=== PATIENT | male | born 1990 | race African-American/Black ===

== ENCOUNTER 2017-05-11 14:07 | Emergency (ER) | payer OTHER, MEDICAID ==
[~2017-05-11] VITALS: Ht 172.7 cm; Wt 61.0 kg
[2017-05-11 17:03] VITALS: BP 122/62
== END 2017-05-11 17:03 | disposition home or self-care (01) ==
LOC: ER 14:07
DX: T14.8 Other injury of unspecified body region (principal); W57.XXXA Bitten or stung by nonvenomous insect and other nonvenomous arthropods, initial encounter; Y93.89 Activity, other specified; Y92.89 Other specified places as the place of occurrence of the external cause; F17.210 Nicotine dependence, cigarettes, uncomplicated
CPT/HCPCS: 99283

== ENCOUNTER 2019-05-17 10:23 | Emergency (ER) | payer MEDICAID, OTHER ==
[~2019-05-17] VITALS: Ht 172.7 cm; Wt 66.0 kg
[2019-05-17 10:35] VITALS: BP 123/59
[2019-05-17] MEDS ORDERED: AZITHROMYCIN 500 MG TABLET PO ONE (12:00)
[2019-05-17] MEDS ORDERED: CEFTRIAXONE SODIUM 250 MG/VIAL IM ONE (12:00)
[2019-05-20 04:08] LABS: CHLAMYDIA TRACHOMATIS NAA Negative (Negative); NEISSERIA GONORRHOEAE NAA Negative (Negative)
== END 2019-05-17 12:39 | disposition home or self-care (01) ==
LOC: ER 11:07
DX: L02.811 Cutaneous abscess of head [any part, except face] (principal); N48.1 Balanitis; Z11.3 Encounter for screening for infections with a predominantly sexual mode of transmission
CPT/HCPCS: 87491; 87591; 96372; 99283; J0696

== ENCOUNTER 2020-02-25 20:07 | Emergency (ER) | payer MEDICAID ==
[~2020-02-25] VITALS: Ht 172.7 cm; Wt 65.0 kg
[2020-02-25 20:18] VITALS: BP 126/72
[2020-02-25] MEDS ORDERED: TETANUS, DIPHTHERIA, PERTUSSIS VAC/PF 0.5ML (>7YR OLD) IM ONE (21:30)
[2020-02-25] MEDS ORDERED: BACITRACIN ZINC OINT UDPKT TOP ONE (21:30)
[2020-02-25] MEDS ORDERED: LIDOCAINE 1%/EPI 1:100,000 10 ML VIAL IJ ONE (21:30)
[2020-02-25] MEDS ORDERED: ACETAMINOPHEN 500MG TABLET PO ONE (21:30)
[2020-02-25] MEDS ORDERED: LIDOCAINE HCL/EPINEPHRINE 1%-EPI 1:100,000 20 ML VIAL INFIL NR (21:45)
== END 2020-02-25 23:39 | disposition home or self-care (01) ==
LOC: ER 20:07
DX: S61.210A Laceration without foreign body of right index finger without damage to nail, initial encounter (principal); S61.011A Laceration without foreign body of right thumb without damage to nail, initial encounter; X58.XXXA Exposure to other specified factors, initial encounter; Y93.89 Activity, other specified; Y92.89 Other specified places as the place of occurrence of the external cause; Y99.8 Other external cause status
CPT/HCPCS: 90715; 99282; J3490

== ENCOUNTER 2020-08-10 16:18 | Emergency (ER) | payer MEDICAID ==
[~2020-08-10] VITALS: Ht 175.3 cm; Wt 71.0 kg
[2020-08-10 16:24] VITALS: BP 134/73
[2020-08-10 19:03] LABS: CLARITY URINE CLEAR (CLEAR); COLOR URINE YELLOW (YELLOW); KETONES URINE NEGATIVE (NEGATIVE); LEUKOCYTE ESTERASE URINE TRACE (NEGATIVE); NITRITE URINE NEGATIVE (NEGATIVE); OCCULT BLOOD URINE NEGATIVE (NEGATIVE); PH URINE 6.5 (4.5-8.0); PROTEIN URINE NEGATIVE (NEGATIVE); SPECIFIC GRAVITY URINE 1.024 (1.005-1.030); UROBILINOGEN URINE 0.2 E.U./dL (0.2-1.0)
[2020-08-14 04:07] LABS: NEISSERIA GONORRHOEAE NAA Negative (Negative)
== END 2020-08-10 19:33 | disposition home or self-care (01) ==
LOC: ER 16:21
DX: A64 Unspecified sexually transmitted disease (principal)
CPT/HCPCS: 81003; 87491; 87591; 99283

== ENCOUNTER 2021-07-20 13:51 | Emergency (ER) | payer MEDICAID ==
[~2021-07-20] VITALS: Ht 172.7 cm; Wt 69.0 kg
[2021-07-20] MEDS ORDERED: IBUPROFEN 600MG TABLET PO STA (17:07)
[2021-07-20] MEDS ORDERED: CEPH500T PO (17:33)
[2021-07-20] MEDS ORDERED: IBUP-2029 PO (17:33)
[2021-07-20] MEDS ORDERED: SULF1TAB48 PO (17:33)
[2021-07-20] MEDS ORDERED: NIZOS TP (17:33)
[2021-07-20 17:54] VITALS: BP 112/56
== END 2021-07-20 17:56 | disposition home or self-care (01) ==
LOC: ER 14:14
DX: L03.811 Cellulitis of head [any part, except face] (principal); Z79.899 Other long term (current) drug therapy
CPT/HCPCS: 99283

== ENCOUNTER 2024-09-03 23:46 | Emergency (ER) | payer MEDICAID ==
[~2024-09-03] VITALS: Ht 175.3 cm; Wt 76.0 kg
[~2024-09-03 23:46] MED LIST: CEPH500T PO; IBUP-2029 PO; NIZOS TP; SULF1TAB48 PO
[2024-09-03 23:50] VITALS: BP 132/39; PULSE 87; RESP 18; TEMP 98.4; O2SAT 98
[2024-09-04] MEDS ORDERED: SODIUM CHLORIDE 0.9% 1,000 ML IV ONE (00:30)
[2024-09-04 01:33] LABS: BASOPHILS % 0.6 % (0.0-2.0); DIFFERENTIAL COMMENT 0; EOSINOPHILS % 1.2 % (0.0-5.0); HEMATOCRIT. 39.9 % (42.0-52.0); HEMOGLOBIN. 13.4 g/dL (14.0-18.0); LYMPHOCYTES % 19.7 % (20.0-50.0); MEAN CORPUSCULAR HEMOGLOBIN 33.6 pg (28.0-32.0); MEAN CORPUSCULAR HGB CONC 33.5 g/dL (31.0-37.0); MEAN CORPUSCULAR VOLUME 100.1 fL (80.0-94.0); MEAN PLATELET VOLUME 8.9 fl (7.4-10.4); MONOCYTES % 11.5 % (2.0-8.0); PLATELET 204 x1000/uL (130-400); RED BLOOD CELL COUNT 3.98 mill/uL (4.7-6.1); RED CELL DISTRIBUTION WIDTH 12.1 % (11.6-14.6); WHITE BLOOD COUNT 7.4 x1000/uL (4.5-11.0)
[2024-09-04 01:46] LABS: CHLORIDE 106 mEq/L (98-107); POTASSIUM 3.7 mEq/L (3.5-5.1); SODIUM 141 mEq/L (136-145)
[2024-09-04 01:48] LABS: CALCIUM 9.3 mg/dL (8.7-10.4); CARBON DIOXIDE 30 mEq/L (21-32)
[2024-09-04 01:53] LABS: CREATININE 0.9 mg/dL (0.6-1.3); GLUCOSE 89 mg/dL (70-105); UREA NITROGEN BLOOD 11 mg/dL (9-23)
[2024-09-04] MEDS ORDERED: NALO4SPR BOTHNSTRLS (04:53)
== END 2024-09-04 08:04 | disposition home or self-care (01) ==
LOC: ER 23:46
DX: T40.711A Poisoning by cannabis, accidental (unintentional), initial encounter (principal); I95.9 Hypotension, unspecified; Y92.89 Other specified places as the place of occurrence of the external cause
CPT/HCPCS: 99284; 80048; 85025; 36415; 93005; J7030